=== PATIENT | female | born 1975 | race Caucasian/White ===

== ENCOUNTER 2018-08-21 05:50 | Inpatient (IN) | payer OTHER ==
[~2018-08-21] VITALS: Ht 172.7 cm; Wt 183.9 kg
[2018-08-21] VITALS (14 sets, daily range): BP systolic 135–163; BP diastolic 58–79; PULSE 78–101; RESP 16–24; Ht 172.7 cm; Wt 183.9 kg
[2018-08-21] MEDS ORDERED: LACTATED RINGER'S 1,000 ML IV* ONE (06:00)
[2018-08-21] MEDS ORDERED: CEFAZOLIN 2 GM/50 ML (PMX) 50 ML IVPB SCH (06:00)
[2018-08-21] MEDS ORDERED: GENTAMICIN 160 MG in DEXTROSE 5% 100 ML IVPB SCH (06:00)
[2018-08-21] MEDS ORDERED: FOLI-49 PO (06:36)
[2018-08-21] MEDS ORDERED: AMLO5TAB4 PO (06:36)
[2018-08-21] MEDS ORDERED: FER325 PO (06:37)
[2018-08-21] MEDS ORDERED: BUPIVACAINE 0.5%/EPI (SDV) 30 ML INJ ONE (07:02)
[2018-08-21] MEDS ORDERED: LIDOCAINE 1%/EPI 30 ML INJ ONE ×2 (07:03→07:32)
[2018-08-21] MEDS ORDERED: BUPIVACAINE 0.25% (MPF) 30 ML INJ ONE ×2 (07:03→07:32)
[2018-08-21] MEDS ORDERED: POLYMYXIN/BACITRACIN 1L IRRIG ONE ×2 (07:03→11:35)
[2018-08-21] MEDS ORDERED: GENTAMICIN 80 MG INJ ONE ×2 (07:03→11:35)
--- NOTE | 2018-08-21 07:23 | PREAC ---
Date/Time of Note Date/Time of Note DATE: 08/21/18 TIME: 07:22 Anesthesia Eval and Record Evaluation Time Pre-Procedure Interview DATE: 08/21/18 TIME: 07:22 Age 43 Sex female NPO: 8 hrs Preoperative diagnosis Breast Cancer Planned procedure Bilateral Mastectomy and Reconstruction Past Medical History Past Medical History: Includes Cardio: HTN GI: Morbid obesity Surgery & Anesthesia Issues No known issue Meds Anticoagulation: No Beta Adali within 24 hr: No Reason Beta Adali not given: Pt. not on B-Adali Reported Medications Ferrous Sulfate* (Ferrous Sulfate*) 325 Mg Tabec, 325 MG PO DAILY, TAB 08/21/18 Folic Acid* (Folic Acid*) 1 Mg Tablet, 1 MG PO DAILY, TAB 08/21/18 Amlodipine Besylate* (Norvasc*) 5 Mg Tablet, 5 MG PO DAILY, TAB 08/21/18 Current Medications Lactated Ringer's 1,000 ml @ 20 mls/hr Q24H ONCE IV* ; Start 08/21/18 at 06:00; Stop 08/22/18 at 05:59 Cefazolin Sodium/ Dextrose 50 ml @ 100 mls/hr PRE-OP IVPB ; Start 08/21/18 at 06:00; Stop 08/21/18 at 15:00 Gentamicin Sulfate 160 mg/ Dextrose 104 ml @ 103.75 mls/ hr PRE-OP IVPB ; Start 08/21/18 at 06:00; Stop 08/21/18 at 15:00 Mupirocin (Bactroban) 1 applic ONCE ONCE TOP ; Start 08/21/18 at 07:30; Stop 08/21/18 at 07:31 Meds reviewed: Yes Allergies Coded Allergies: No Known Allergy (Unverified , 08/21/18) Allergies Reviewed: Yes Labs/Studies Labs Reviewed: Reviewed by anesthesiologist Blood Bank Test 08/21/18 06:49 Blood Product Summary Counts test: Negative Studies: ECG (n/a), CXR (n/a) Pre-procedure Exam Last vitals Vital Signs Date Temp Pulse Resp B/P (MAP) Pulse Ox O2 O2 Flow FiO2 Time Delivery Rate 08/21/18 99.0 101 18 156/61 98 Room Air 06:40 (92) Airway: Adequate mouth opening, Adequate thyromental dist Mallampati: Mallampati II Teeth: Normal Lung: Normal Heart: Normal ASA Physical Status ASA physical status: 2 Emergency: None Planned Anesthetic General/MAC: ETT Planned Pain Management Parenteral pain med Pre-operative Attestations Prior to commencing anesthesia and surgery, the patient was re-evaluated, there was verification of: *The patient's identity *The results of appropriate recent lab work and preoperative vital signs *The above evaluation not changing prior to induction *Anesthetic plan, risk benefits, alternative and complications discussed with patient/family; questions answered; patient/family understands, accepts and wishes to proceed. NUBIA MCCRACKEN MD Aug 21, 2018 07:23
[2018-08-21] MEDS ORDERED: MUPIROCIN 2% 22 GM OINT TOP ONE (07:30)
--- NOTE | 2018-08-21 07:30 | HPN ---
Date/Time of Note Date/Time of Note DATE: 08/21/18 TIME: 07:30 Interval H&P Admission Note Pt. seen H&P reviewed: No system changes JENNY ZAMUDIO MD Aug 21, 2018 07:30
[2018-08-21] MEDS ORDERED: PROPOFOL 40 ML ONE (07:41)
[2018-08-21] MEDS ORDERED: MIDAZOLAM 1 MG/ML 2 ML INJ ONE ×2 (07:41)
[2018-08-21] MEDS ORDERED: ROCURONIUM 50 MG INJ ONE ×5 (07:41→10:59)
[2018-08-21] MEDS ORDERED: CEFAZOLIN 1 GM INJ ONE ×2 (07:41→10:54)
[2018-08-21] MEDS ORDERED: ONDANSETRON 4 MG INJ ONE (09:20)
[2018-08-21] MEDS ORDERED: DEXAMETHASONE 4 MG/ML 5 ML INJ ONE (09:21)
[2018-08-21] MEDS ORDERED: METOCLOPRAMIDE 10 MG INJ ONE (09:21)
--- NOTE | 2018-08-21 10:11 | OPR ---
Date/Time of Note Date/Time of Note DATE: 08/21/18 TIME: 10:04 Operative Report Procedure Date: Aug 21, 2018 Preoperative Diagnosis BRCA positivity Postoperative Diagnosis BRCA positivity Operation/Procedure Performed 1. Right total mastectomy 2. Left total mastectomy Surgeon El Zamudio MD Shuttle Repairer Nickolas Danielle MD Anesthesia Type: general Anesthesiologist: NUBIA MCCRACKEN MD Estimated Blood Loss: 50 - 100 ml's Transfusion none Specimen Right breast and left breast Grafts/Implants none Tubes/Drains Per Dr. Danielle Complications none Pt Condition Post Procedure: other (Surgical care of patient transferred to Dr. Danielle) Disposition: other (Surgical care of patient transferred to Dr. Danielle who will dictate his portion of the procedure) Indications BRCA positivity Procedure Description After satisfactory general endotracheal anesthesia was achieved the entire chest was prepped and draped. Both breasts were marked preoperatively by Dr. Danielle. The right mastectomy was performed first. A transverse skin ellipse was scored sharply across the previously marked ellipse. The upper flap was dissected to the clavicle superiorly using blunt and electrocautery dissection. The lower flap was dissected to rectus sheath using blunt and electrocautery dissection. The breast was then dissected from medial to lateral with electrocautery dissec tion to the level of the axilla where it was divided with electrocautery. The specimen was oriented with sutures. Short suture superior long lateral. Next a mirror image incision was made in the left breast. The upper flap was dissected to the clavicle superiorly with electrocautery. The lower flap was dissected to the rectus sheath with electrocautery. The breast was dissected from medial to lateral at the level of the pectoralis fascia with electrocautery dissection to the level of the axilla where it was divided with electrocautery. The specimen was oriented with sutures. Short suture superior long lateral. The resultant bilateral mastectomy left the patient with a generous amount of skin for the immediate reconstruction to be done by Dr. Danielle. At this portion of the procedure, the surgical care of the patient was turned over to Dr. Danielle. EL ZAMUDIO MD Aug 21, 2018 10:11
[2018-08-21] MEDS ORDERED: METOCLOPRAMIDE 10 MG INJ IV PRN (10:30)
[2018-08-21] MEDS ORDERED: EPHEDrine SULFATE 50 MG/5 ML SYG IV PRN (10:30)
[2018-08-21] MEDS ORDERED: OXYCODONE/ACETAMINOPHEN (5/325) TAB PO PRN ×3 (10:30)
[2018-08-21] MEDS ORDERED: DIPHENHYDRAMINE 50 MG INJ IV PRN (10:30)
[2018-08-21] MEDS ORDERED: HYDROmorphONE 1 MG/5 ML IV SYRINGE IV PRN ×3 (10:30)
[2018-08-21] MEDS ORDERED: hydrALAzine 20 MG INJ IV PRN (10:30)
[2018-08-21] MEDS ORDERED: ONDANSETRON 4 MG INJ IV PRN ×3 (10:30→15:00)
[2018-08-21] MEDS ORDERED: LABETALOL HCL 20MG INJ IV PRN (10:30)
[2018-08-21] MEDS ORDERED: MEPERIDINE 25 MG INJ IV PRN (10:30)
[2018-08-21] MEDS ORDERED: FENTAnyl 50 MCG/ML VIAL IV PRN ×3 (10:30)
[2018-08-21] MEDS ORDERED: morphine 2 MG INJ IV PRN ×2 (10:30→15:00)
[2018-08-21] MEDS ORDERED: KETOROLAC 30 MG INJ ONE (12:55)
[2018-08-21] MEDS ORDERED: SUGAMMADEX SODIUM 200 MG/2 ML VIAL IV ONE (13:24)
--- NOTE | 2018-08-21 14:05 | PAC ---
Date/Time of Note Date/Time of Note DATE: 08/21/18 TIME: 14:05 Post-Anesthesia Notes Post-Anesthesia Note Last documented vital signs Vital Signs Date Temp Pulse Resp B/P (MAP) Pulse Ox O2 O2 Flow FiO2 Time Delivery Rate 08/21/18 99.0 101 18 156/61 98 Room Air 14:00 (92) Activity: WNL Respiratory function: WNL Cardiovascular function: WNL Mental status: Baseline Pain reasonably controlled: Yes Hydration appropriate: Yes Nausea/Vomiting absent: Yes NUBIA MCCRACKEN MD Aug 21, 2018 14:05
--- NOTE | 2018-08-21 14:47 | OPPN ---
Date/Time of Note Date/Time of Note DATE: 08/21/18 TIME: 14:30 Operative Report Preoperative Diagnosis Immediately Post Bilateral Mastectomy By Dr. Toni Delgado M.D. Postoperative Diagnosis Same Operation/Procedure Performed Bilateral First Stage Breast Reconstruction Using Tissue Industrial [employer] Magistrate Implants, and A.D.MAlice sling (Clooagen Matrix, Surgimend by Integra) Surgeon Jazz Danielle M.D. cement tester assistant Toni Delgado M.D. Anesthesia: general (E.T.I. : Bill Ha M.D., and 120 ml. of 0.5% Lidocain, 0.125% Marcain, & 1/200,000 Epinephrin solution) Estimated blood loss: 0 - 10 ml's Transfusion Required none Specimen None Grafts/Implants Rt. Tissue Industrial Court Magistrate: [place], Artoura High [id number] cc, Ref#: [id number], SN: [id number], Total N.S.: [address] Magistrate: [place], Artoura High [id number] cc, Ref#: [id number], SN: [id number], Total N.S.: 500 ml. Rt. ADM: Integra Gurgimend PRS, Ref.#: [id number], 8 cm. X 16 cm., Lot#: [id number] Lt. ADM: Integra Gurgimend PRS, Ref.#: [id number], 8 cm. X 16 cm., Lot#: [id number] Complications none JAZZ DANIELLE MD Aug 21, 2018 14:45
--- NOTE | 2018-08-21 17:30 | OPR ---
DATE OF OPERATION: 08/21/2018 PREOPERATIVE DIAGNOSIS: Post- bilateral mastectomy by Dr. Jenny Zamudio. FINAL DIAGNOSIS: Post- bilateral mastectomy by Dr. Jenny Zamudio. PROCEDURES: 1. Assist Dr. Zamudio with bilateral mastectomy. 2. Bilateral first stage breast reconstruction using tissue mandarin speaking nanny implants and acellular dermal matrix sling (collagen matrix, SurgiMend by Integra). SURGEON: Jazz Danielle MD MACHINE STONECUTTER: Jenny Zamudio MD ANESTHESIA: General endotracheal intubation. ANESTHESIOLOGIST: Bill Ha MD ANESTHESIA: 120 mL of 0.5% lidocaine, 0.125% Marcaine and 1:200,000 epinephrine solution. ESTIMATED BLOOD LOSS: 10 mL. SPECIMEN: None. DRESSING: Bactroban ointment and dry sterile dressing, Tegaderm, ABD pad, Medipore tape and mammary support. DRAINS: Kemar-Drew 10 mm flat (x2). SPECIFICATIONS OF TISSUE SENIOR DATA ARCHITECT IMPLANTS: 1. Right tissue mandarin speaking nanny, Winn, Artoura high profile, 600 mL, reference number [id number], serial number [id number], total amount of normal saline in right tissue mandarin speaking nanny is 500 mL. 2. Left tissue mandarin speaking nanny, Winn Artoura high profile, 600 mL, reference number [id number], serial number [id number], total amount of normal saline in the left tissue mandarin speaking nanny 500 mL. ACELLULAR DERMAL MATRIX SPECIFICATIONS: 1. Right ADM: Integra SurgiMend PRS reference number [id number], 8 cm x 16 cm, lot number [id number]. 2. Left ADM: Integra SurgiMend PRS reference number [id number], 8 cm x 16 cm, lot number [id number]. OPERATIVE PROCEDURE: The patient received 3 grams of intravenous Ancef and 160 mg of intravenous gentamicin as preoperative antibiotic. Also with the patient in sitting position in the holding area, markings were made for the planned procedure. In the operating room with the patient in supine position following adequate monitoring and induction of adequate level of general anesthesia using endotracheal intubation by Dr. Ha, anesthesiologist, the chest was prepped and draped in the usual sterile fashion. Operation was first begun by Dr. Zamudio who performed bilateral mastectomy, with whom I assisted. Following completion of mastectomies, I proceeded with bilateral first stage immediate breast reconstruction using tissue mandarin speaking nanny implant and acellular dermal matrix (ADM) as follows. Procedure was first performed for the left and an identical was performed for the right as follows. Inferior insertion of the pectoralis major muscle was elevated and dissection was carried beneath the muscle to elevate the muscle. At this point, hemostasis was carefully checked and assured throughout the procedure using electrocoagulation. At this point, adequate amount of local anesthetic solution was injected at the periphery and base of the operation in order to provide postoperative pain control. Following irrigation with adequate amount of triple antibiotic solution which was also used to immerse the implants and the ADM for over 1 hour prior to their use, the ADM was placed and was fixed to the chest wall at the inframammary fold using interrupted and continuous stitches of 2-0 Monocryl and then the tissue mandarin speaking nanny implant was primed with 100 mL of injectable normal saline using aseptic fluid transfer set provided by [employer] as a closed delivery system. The tissue mandarin speaking nanny was placed and positioned inside the pocket. The 3 taps were attached to the chest wall using interrupted stitches of 2-0 Monocryl. The ADM was placed over the inferior portion of the tissue mandarin speaking nanny and the superior border was attached to the inferior border of the pectoralis major muscle using 2-0 Monocryl sutures. Repair was found to be satisfactory upon its completion. A 10 mm flat Kemar-Drew drain was also placed inside the pocket using a stab incision over the anterior axillary line inferior to the inframammary fold was passed through a 12 cm subcutaneous pocket and then entered the subpectoral pocket. This was fixed to the skin using an interrupted stitch of 3-0 Monocryl and placement of the Kemar-Drew drain was performed prior to insertion of the tissue mandarin speaking nanny implants and then a volume of the tissue mandarin speaking nanny was gradually increased to 500 mL as a skin closure was performed noticing that there is no tension over the skin overlying the tissue mandarin speaking nanny implant. Mastectomy flaps were viable at the completion of procedure following both sides. Following completion of both procedures and closures, all counts were checked and reported to be correct. Hemostasis was carefully checked and assured prior to each closure. Dressing was applied as mentioned above including a mammary support at the completion of the procedure. The patient tolerated this procedure very well and left the operating room to the recovery room awake, stable and in comfortable, satisfactory and extubated condition. Dictated By: JAZZ CANTRELL/LIS Conf#: [id number] DID#: [id number] CC: JENNY ZAMUDIO MD;*EndCC* MTDD
[2018-08-21] MEDS: OXYCODONE/ACETAMINOPHEN (5/325) TAB PO PRN (20:11)
[2018-08-22] MEDS: morphine 4 MG/ML VIAL IV PRN ×6 (03:14→23:54)
[2018-08-22] MEDS: OXYCODONE/ACETAMINOPHEN (5/325) TAB PO PRN ×4 (05:49→21:59)
[2018-08-22 08:26] VITALS: BP 104/52; PULSE 81; RESP 18
[2018-08-22] MEDS: IBUPROFEN 400 MG TAB PO SCH ×2 (12:48→17:52)
--- NOTE | 2018-08-22 13:41 | QN ---
Documentation Comment Postoperative day #1 Vital signs are stable Dressings are dry Drainage serosanguineous She is in moderate amount of pain Plan: Hospitalist evaluation. Anticipate discharge tomorrow JENNY ZAMUDIO MD Aug 22, 2018 13:41
--- NOTE | 2018-08-22 13:48 | CONS ---
Date/Time of Note Date/Time of Note DATE: 08/22/18 TIME: 13:47 Assessment/Plan Assessment/Plan Assessment/Plan Hypertension currently with good control Chronic anemia: Per the surgeon no transfusion necessary, this is chronic for patient, continue to monitor Leukocytosis likely reactive Morbid obesity breast cancer gene positive Disposition: Continue routine postop care, continue supportive care and pain control, patient has been cleared for discharge by general surgery report, patient still reporting a lot of pain, plan to discharge tomorrow. Ambulate and out of bed. As much as possible Result Diagram: 08/22/18 0438 Results 24hrs Laboratory Tests Test 08/22/18 04:38 08/22/18 07:11 White Blood Count 13.2 H Red Blood Count 2.96 L Hemoglobin 7.2 L Hematocrit 24.5 L Mean Corpuscular Volume 82.8 Mean Corpuscular Hemoglobin 24.3 L Mean Corpuscular Hemoglobin Concent 29.4 L Red Cell Distribution Width 17.7 H Platelet Count 289 Mean Platelet Volume 9.6 Immature Granulocytes % 0.600 H Neutrophils % 84.3 H Lymphocytes % 7.8 L Monocytes % 7.1 Eosinophils % 0.0 Basophils % 0.2 Nucleated Red Blood Cells % 0.0 Immature Granulocytes # 0.080 H Neutrophils # 11.2 H Lymphocytes # 1.0 Monocytes # 0.9 Eosinophils # 0.0 Basophils # 0.0 Nucleated Red Blood Cells # 0.0 Lab Scanned Report REFERENCE LAB Consultation Date/Type/Reason Admit Date/Time Aug 21, 2018 at 05:50 Hx of Present Illness 43-year-old morbidly obese female who was admitted for elective bilateral mastectomy after it was found that she was positive for a breast ca causing gene, not brca per patient. She underwent surgery yesterday and tolerated fairly well. She was originally planned for discharge today however patient continues to report pain. She also has a chronic anemia and is on iron therapy at home. 12 point review if systems was done and pertinent findings are as noted. Past Medical History HTN chronic anemia Medications Current Medications Oxycodone/ Acetaminophen (Percocet (5/ 325)) 1 tab Q4H PRN PO PAIN LEVEL 1-3 OR FEVER; Start 08/21/18 at 10:30 Oxycodone/ Acetaminophen (Percocet (5/ 325)) 2 tab Q4H PRN PO MODERATE PAIN L EVEL 4-6 Last administered on 08/22/18at 12:48; Admin Dose 2 TAB; Start 08/21/18 at 15:00 Morphine Sulfate (morphine) 2 mg Q4H PRN IV SEVERE PAIN LEVEL 5-10; Start 08/21/18 at 15:00 Morphine Sulfate (morphine) 4 mg Q4H PRN IV SEVERE PAIN LEVEL 7-10 Last administered on 08/22/18at 11:16; Admin Dose 4 MG; Start 08/21/18 at 15:00 Ondansetron HCl (Zofran Inj) 4 mg Q6H PRN IV NAUSEA AND/OR VOMITING; Start 08/21/18 at 15:00 Ibuprofen (Motrin) 400 mg WITH MEALS PO Last administered on 08/22/18at 12:48; Admin Dose 400 MG; Start 08/22/18 at 11:40 Amlodipine Besylate (Norvasc) 5 mg DAILY PO ; Start 08/22/18 at 14:00; Status UNV Ferrous Sulfate (Ferrous Sulfate (Ec)) 325 mg DAILY PO ; Start 08/22/18 at 14:00; Status UNV Folic Acid (Folic Acid) 1 mg DAILY PO ; Start 08/22/18 at 14:00; Status UNV Allergies: Coded Allergies: No Known Allergy (Unverified , 08/21/18) Past Surgical History leo mastectomy Family History Significant Family History: cancer Social History Alcohol Use: none Smoking Status: Never smoker Exam/Review of Systems Vital Signs Vitals Vital Signs Date Temp Pulse Resp B/P (MAP) Pulse Ox O2 O2 Flow FiO2 Time Delivery Rate 08/22/18 98.2 81 18 104/52 93 Nasal 08:26 (69) Cannula 08/21/18 2.0 16:45 Intake and Output 08/21/18 08/21/18 08/22/18 1414:59 22:59 06:59 IntakeIntake Total 3500 ml 440 ml 800 ml OutputOutput Total 250 ml 500 ml 1130 ml BalanceBalance 3250 ml -60 ml -330 ml Exam General: A&O x3, answering questions appropriately, lethargic, morbily obese HEENT: NC/ AT. PERRL. EOM intact Neck: supple CVS: S1, S2, RRR. no murmurs. dressings on chest wall clean and dry, Lungs: CTA b/l. no wheezing or rhonchi Abd: soft, nontender, +BS Ext: moving all extremities skin: no rashes Medications Medications Current Medications Oxycodone/ Acetaminophen (Percocet (5/ 325)) 1 tab Q4H PRN PO PAIN LEVEL 1-3 OR FEVER; Start 08/21/18 at 10:30 Oxycodone/ Acetaminophen (Percocet (5/ 325)) 2 tab Q4H PRN PO MODERATE PAIN LEVEL 4-6 Last administered on 08/22/18at 12:48; Admin Dose 2 TAB; Start 08/21/18 at 15:00 Morphine Sulfate (morphine) 2 mg Q4H PRN IV SEVERE PAIN LEVEL 5-10; Start 08/21/18 at 15:00 Morphine Sulfate (morphine) 4 mg Q4H PRN IV SEVERE PAIN LEVEL 7-10 Last administered on 08/22/18at 11:16; Admin Dose 4 MG; Start 08/21/18 at 15:00 Ondansetron HCl (Zofran Inj) 4 mg Q6H PRN IV NAUSEA AND/OR VOMITING; Start 08/21/18 at 15:00 Ibuprofen (Motrin) 400 mg WITH MEALS PO Last administered on 08/22/18at 12:48; Admin Dose 400 MG; Start 08/22/18 at 11:40 Amlodipine Besylate (Norvasc) 5 mg DAILY PO ; Start 08/22/18 at 14:00; Status UNV Ferrous Sulfate (Ferrous Sulfate (Ec)) 325 mg DAILY PO ; Start 08/22/18 at 14:00; Status UNV Folic Acid (Folic Acid) 1 mg DAILY PO ; Start 08/22/18 at 14:00; Status UNV MARTY PATE Aug 22, 2018 13:48
[2018-08-22] MEDS: AMLODIPINE 5 MG TAB PO SCH (14:00)
[2018-08-22 15:20] VITALS: BP 109/51; PULSE 79; RESP 18
[2018-08-22] MEDS: FOLIC ACID 1 MG TAB PO SCH (15:25)
[2018-08-22] MEDS: FERROUS SULFATE (EC) 325 MG TAB PO SCH (15:25)
[2018-08-22 19:50] VITALS: BP 118/57; PULSE 84; RESP 18
[2018-08-23 01:40] VITALS: BP 133/63; PULSE 81; RESP 20
[2018-08-23] MEDS: OXYCODONE/ACETAMINOPHEN (5/325) TAB PO PRN ×2 (02:45→07:47)
[2018-08-23] MEDS: morphine 4 MG/ML VIAL IV PRN ×3 (04:41→14:43)
--- NOTE | 2018-08-23 08:25 | DS ---
Date/Time of Note Date/Time of Note DATE: 08/23/18 TIME: 08:21 Discharge Summary Admission/Discharge Info Admit Date/Time Aug 21, 2018 at 05:50 Discharge Date/Time August 23, 2018 Discharge Diagnosis Genetic risk for breast cancer; status post bilateral mastectomy; status post immediate postop breast reconstruction staging; iron deficiency anemia; morbid obesity Patient Condition: Fair Consults Internal medicine-Dr. Michaud; plastic surgery-Dr. Jazz Danielle Procedures Bilateral mastectomy; followed by bilateral breast reconstruction procedure with tissue expanders; transfusion Hx of Present Illness Hx of Present Illness 43-year-old morbidly obese female who was admitted for elective bilateral mastectomy after it was found that she was positive for a breast ca causing gene, not brca per patient. She underwent surgery yesterday and tolerated fairly well. She was originally planned for discharge today however patient continues to report pain. She also has a chronic anemia and is on iron therapy at home. 12 point review if systems was done and pertinent findings are as noted. Hospital Course 43-year-old female admitted with above diagnosis. She describes her breast cancer gene susceptibility as P10. Patient has significant anemia that apparently has been chronic although she has low iron levels. The patient reports is difficult for her to move around both due to the chest wall pain and also to her body habitus. She however has improved to the point where she is stable for discharge. Home Meds Reported Medications Ferrous Sulfate* (Ferrous Sulfate*) 325 Mg Tabec, 325 MG PO DAILY, TAB 08/21/18 Folic Acid* (Folic Acid*) 1 Mg Tablet, 1 MG PO DAILY, TAB 08/21/18 Amlodipine Besylate* (Norvasc*) 5 Mg Tablet, 5 MG PO DAILY, TAB 08/21/18 Follow-up Plan Dr. Zamudio in 1 week; Dr. ramirez for further evaluation as scheduled; primary care physician in 3 weeks Primary Care Provider Not On Staff Doctor Time spent on discharge: > 30 minutes Pending Labs Laboratory Tests Test 08/23/18 04:34 White Blood Count 11.4 10^3/ul (4.8-10.8) Red Blood Count 2.86 10^6/ul (4.20-5.40) Hemoglobin 7.0 g/dl (12.0-16.0) Hematocrit 24.4 % (37.0-47.0) Mean Corpuscular Volume 85.3 fl (82.0-101.0) Mean Corpuscular Hemoglobin 24.5 pg (29.0-33.0) Mean Corpuscular Hemoglobin Concent 28.7 g/dl (32.0-37.0) Red Cell Distribution Width 18.0 % (11.5-14.5) Platelet Count 267 10^3/UL (140-415) Mean Platelet Volume 9.5 fl (7.4-10.4) Immature Granulocytes % 0.500 % (0.001-0.429) Neutrophils % 80.3 % (39.0-77.0) Lymphocytes % 11.3 % (15.0-51.0) Monocytes % 6.1 % (0.0-11.0) Eosinophils % 1.4 % (0.0-7.0) Basophils % 0.4 % (0.0-2.0) Nucleated Red Blood Cells % 0.0 /100WBC (0.0-0.0) Immature Granulocytes # 0.060 10^3/ul (0.0-0.031) Neutrophils # 9.1 10^3/ul (1.6-7.5) Lymphocytes # 1.3 10^3/ul (0.8-2.9) Monocytes # 0.7 10^3/ul (0.3-0.9) Eosinophils # 0.2 10^3/ul (0.0-0.5) Basophils # 0.0 10^3/ul (0.0-0.1) Nucleated Red Blood Cells # 0.0 10^3/ul (0.0-0.0) Sodium Level 140 mmol/L (135-144) Potassium Level 4.1 mmol/L (3.5-5.1) Chloride Level 107 mmol/L (97-110) Carbon Dioxide Level 30 mmol/L (21-31) Anion Gap 3 (5-13) Blood Urea Nitrogen 13 mg/dl (7-20) Creatinine 0.89 mg/dl (0.44-1.00) Est Glomerular Filtrat Rate mL/min > 60 mL/min (>60) Glucose Level 109 mg/dl (70-220) Calcium Level 9.6 mg/dl (8.4-10.2) Copies To: CC: JENNY ZAMUDIO MD; JAZZ DANIELLE MD ; KIESHA SPANGLER MD Aug 23, 2018 08:25
--- NOTE | 2018-08-23 08:26 | PDOCDIS ---
Discharge Instructions DIAGNOSIS Discharge Diagnosis Genetic risk for breast cancer; status post bilateral mastectomy; status post immediate postop breast reconstruction staging; iron deficiency anemia; morbid obesity CONDITION [id number] Patient Condition: [id number] Fair HOME CARE INSTRUCTIONS: [id number] Diet Instructions: [id number] Reduced Calorie ACTIVITY: [id number] Activity Restrictions: [id number] Slowly Increase Activity Do not operate Machinery Do not operate Power Tool Avoid Heavy Housework FOLLOW UP/APPOINTMENTS Follow-up Plan Dr. Delgado in 1 week; Dr. Danielle for further evaluation as scheduled; primary care physician in 3 weeks KIESHA SPANGLER MD Aug 23, 2018 08:26
[2018-08-23] MEDS ORDERED: IBUP-1541 PO (08:27)
[2018-08-23] MEDS ORDERED: SOD FERRIC GLUC COMPLX 125 MG in SOD CHLORIDE 0.9% 100 ML IVPB ONE ×2 (08:30→13:00)
[2018-08-23 08:47] VITALS: BP 122/54; PULSE 85; RESP 20
[2018-08-23] MEDS: FERROUS SULFATE (EC) 325 MG TAB PO SCH (09:13)
[2018-08-23] MEDS: IBUPROFEN 400 MG TAB PO SCH ×2 (09:13→13:15)
[2018-08-23] MEDS: FOLIC ACID 1 MG TAB PO SCH (09:13)
[2018-08-23] MEDS: AMLODIPINE 5 MG TAB PO SCH (09:15)
--- NOTE | 2018-08-23 10:18 | QN ---
Documentation Comment Postoperative day #2 Patient in good spirits Pain well controlled Dressings are dry. Drainage serosanguineous Plan: Discharge home today follow-up with JENNY Kumar MD Aug 23, 2018 10:18
== END 2018-08-23 16:00 | disposition home or self-care (01) | DRG 584 ==
LOC: REC 05:50 → EDSTATUS 07:30 → MS1 15:13
PROVIDERS: ADMIT Surgery; ATTEND Surgery
PROC: 30233N1 Transfusion of Nonautologous Red Blood Cells into Peripheral Vein, Percutaneous Approach (ICD-10-PCS; 2018-08-21)
PROC: 0HTV0ZZ Resection of Bilateral Breast, Open Approach (ICD-10-PCS; principal; 2018-08-21 07:30)
PROC: 0HHV0NZ Insertion of Tissue Expander into Bilateral Breast, Open Approach (ICD-10-PCS; 2018-08-21 07:30)
DX: Z40.01 Encounter for prophylactic removal of breast (principal); Z68.44 Body mass index [BMI] 60.0-69.9, adult; Z15.01 Genetic susceptibility to malignant neoplasm of breast; I10 Essential (primary) hypertension; E66.01 Morbid (severe) obesity due to excess calories; D72.829 Elevated white blood cell count, unspecified; Z17.0 Estrogen receptor positive status [ER+]; D50.9 Iron deficiency anemia, unspecified
CPT/HCPCS: 36430; 80048; 83540; 85025; 86850; 86900; 86901; 86920; 87086; 88307; 88341; 88342; J0690; J1100; J1170; J1580; J1885; J2250; J2270; J2405; J2765; J2916; J3010; J7120; P9016